=== PATIENT | male | born 1955 | race Caucasian/White ===

== ENCOUNTER → 2017-01-14 | Outpatient (CLI) | payer OTHER ==
[~2017-01-14] MED LIST: AMBIEN CR PO; AMLODIPINE/BENAZ PO; ATARAX PO; AUGMENTIN PO; AUGMENTIN875 MG PO; BACITRACIN15 GM TP; BACTRIM DS TABL1 TA1 PO; BLOOD PRESSURE PILL; CELEBREX PO; FAMOTIDINE PO; FLOMAX0.4 M1 PO; IMITREX PO; LORAZEPAM0.5 MG PO; LORAZEPAM1 MG PO; LORTAB 10-5001 EACH PO; LORTAB 10/500 T1 TAB PO; LORTAB 101 TAB 10/5 PO; LOTENSIN PO; NO MEDICATIONS; PERCOCET 5/321 UDTAB PO; PERCOCET5/325 PO; PHENERGAN SYRUP PO; PHENERGAN25 M1 PO; PREDNISONE PO; SEROQUEL PO; TESSALON PERLES PO; VOLTAREN75 MG PO; ZANTAC150 MG PO; ZITHROMAX PO; ZOFRAN ODT4 MG PO; ZOLPIDEM TART12.5 M1 PO
--- NOTE | ~2017-01-14 | CT57 ---
[facility] A Service of [facility] RADIOLOGY TEXT RESULTS PATIENT: JAIRON JACKSON LOCATION: [facility] : 53 UNIT #: [id number] AGE: [address]: YAYA DYSON MD SEX: M ORDER DR: [id number] [address] [id number] P MR#: [id number] Acc #: [id number] NAME: JAIRON JACKSON : 1955 SEX: M STUDY DATE/TIME: 01/14/2017 15:47 UNIT: [facility] ROOM: STUDY DESCRIPTION: CT Chest Wo Cont Attending Physician: Irma Dyson M.D. Referring Physician: Irma Dyson M.D. Ordering Physician: Irma Dyson M.D. Primary Care Physician: Irma Dyson M.D. MEDICAL IMAGING REPORT This report is preliminary unless electronic signature is present. EXAM Chest CT without contrast. HISTORY Abnormal chest x-ray recently with an indeterminate nodule seen on a previous chest CT in 2013. Chronic emphysema. Chronic shortness of breath and back pain. TECHNIQUE Axial images were obtained without contrast and evaluated at lung and mediastinal windows. This CT exam was performed with one or more of the following radiation dose reduction techniques: automatic exposure control, adjustment of mA and/or kV according to patient size, and iterative reconstruction. FINDINGS Chest images at mediastinal window show no enlarged mediastinal or hilar lymph nodes. There is mild calcification in the proximal LAD. There is no evidence of pleural or pericardial fluid. Upper abdominal structures are remarkable for a 2 mm nonobstructing right kidney stone and fatty atrophy of the pancreas. Lung window imaging shows no suspicious masses or infiltrates. There is a calcified granuloma at the left lung. Multilevel thoracic degenerative disc disease is noted once again. IMPRESSION No suspicious lung masses are seen. No active process is noted. No evidence of adenopathy. [facility] A Service of [facility] RADIOLOGY TEXT RESULTS PATIENT: JAIRON JACKSON LOCATION: [facility] : 53 UNIT #: [id number] AGE: [address]: YAYA DYSON MD SEX: M ORDER DR: Dictated by... Marvin Solis M.D. THIS IS AN ELECTRONICALLY VERIFIED REPORT Marvin Solis M.D. at 01/16/2017 7:07 AM JUSTINE/jesus TD: 01/15/2017 09:06 JOB #: [id number] MEDICAL IMAGING REPORT Page 1 of 1
== END | disposition home or self-care (01) ==
LOC: SCT 07:16
DX: R93.8 Abnormal findings on diagnostic imaging of other specified body structures (principal)
CPT/HCPCS: 71250